=== PATIENT | male | born 1985 | race Caucasian/White ===

== ENCOUNTER 2017-05-25 09:28 | Inpatient (IN) | payer OTHER ==
--- NOTE | 2017-05-25 09:57 | HP ---
CIWA Score - CIWA Score Nausea/Vomitin-Mild Nausea/No Vomiting Muscle Tremors: 4-Moderate,w/Arms Extend Anxiety: 4-Mod. Anxious/Guarded Agitation: 2 Paroxysmal Sweats: 4-Forehead w/Sweat Beads Orientation: 0-Oriented Tacttile Disturbances: 1-Very Mild Itch/Numbness Auditory Disturbances: 0-None Visual Disturbances: 0-None Headache: 3-Moderate CIWA-Ar Total Score: 19 Admission ROS S - HPI Chief Complaint: Alcohol withdrawal symptoms Allergies/Adverse Reactions: Allergies Allergy/AdvReac Type Severity Reaction Status Date / Time No Known Allergies Allergy Verified 05/25/17 09:43 History of Present Illness: 31 years old male with5 years old history dependence is seeking admission to detox. Patient has been to previous detox at [facility] and reports insignificant period of sobriety. He reports medical history of depression, anxiety and he appears dehydrated with dry mucous membranes. He denies suicide attempt and suicidal ideation at this time. Exam Limitations: No Limitations - Ebola screening Have you traveled outside of the country in the last 21 days: No (N) Have you had contact with anyone from an Ebola affected area: No Have you been sick,other than usual withdrawal symptoms: No Do you have a fever: No - Review of Systems Constitutional: Chills, Loss of Appetite, Malaise, Night Sweats, Changes in sleep EENT: reports: No Symptoms Reported Respiratory: reports: No Symptoms reported Cardiac: reports: No Symptoms Reported GI: reports: Diarrhea, Poor Appetite, Poor Fluid Intake, Vomiting, Abdominal cramping : reports: No Symptoms Reported Musculoskeletal: reports: Muscle Pain Integumentary: reports: Dryness, Flushing Neuro: reports: Tingling, Tremors Endocrine: reports: Flushing Hematology: reports: No Symptoms Reported Psychiatric: reports: Orientated x3, Agitated, Anxious, Depressed Other Systems: Reviewed and Negative Patient History - Patient Medical History Hx Anemia: No Hx Asthma: No Hx Chronic Obstructive Pulmonary Disease (COPD): No Hx Cancer: No Hx Cardiac Disorders: No Hx Congestive Heart Failure: No Hx Hypertension: No Hx Hypercholesterolemia: No HX Cerebrovascular Accident: No Hx Seizures: No Hx Diabetes: No Hx Gastrointestinal Disorders: No Hx Liver Disease: No Hx Genitourinary Disorders: No Hx Sexually Transmitted Disorders: No Hx Renal Disease (ESRD): No Hx Thyroid Disease: No Hx Human Immunodeficiency Virus (HIV): No (Negative) Hx Hepatitis C: No Hx Depression: Yes (not on medic ation) Hx Suicide Attempt: No (Denies suicidal ideation at this time) Hx Bipolar Disorder: No Hx Schizophrenia: No Other Medical History: Anxiety - not on medication - Patient Surgical History Past Surgical History: No - PPD History Previous Implant?: No Implanted On Prior R Admission?: No PPD to be Administered?: Yes - Reproductive History Patient is a Female of Child Bearing Age (11 -55 yrs old): No (MALE) - Smoking Cessation Smoking history: Current every day smoker Have you smoked in the past 12 months: Yes Aproximately how many cigarettes per day: 2 Hx Chewing Tobacco Use: No Initiated information on smoking cessation: Yes 'Breaking Loose' booklet given: 05/25/17 - Substance & Tx. History Hx Alcohol Use: Yes Hx Substance Use: No Substance Use Type: Alcohol Hx Substance Use Treatment: Yes ([facility]) - Substances Abused Alcohol Route: Oral Frequency: Daily Amount used: 1-2 PINT VODKA Age of first use: 26 Date of Last Use: 05/24/17 Family Disease History - Family Disease History Family History: Denies Admission Physical Exam BHS - Vital Signs Vital Signs: Vital Signs - 24 hr 05/25/17 09:31 Temperature 96.3 F L Pulse Rate 104 H Respiratory 22 Rate Blood Pressure 150/98 - Physical General Appearance: Yes: Appropriately Dressed, Moderate Distress HEENTM: Yes: EOMI, Normal ENT Inspection, Normal Voice, HAVEN Respiratory: Yes: Lungs Clear, Normal Breath Sounds, No Respiratory Distress Neck: Yes: Supple Breast: Yes: Breast Exam Deferred Cardiology: Yes: Tachycardia Abdominal: Yes: Normal Bowel Sounds, Soft Genitourinary: Yes: Dribblimg Back: Yes: Normal Inspection Musculoskeletal: Yes: Muscle Pain Neurological: Yes: Alert, Normal Mood/Affect Integumentary: Yes: Dry, Pale Lymphatic: Yes: Within Normal Limits - Diagnostic (1) Alcohol dependence with uncomplicated withdrawal Current Visit: Yes Status: Chronic (2) Nicotine dependence Current Visit: Yes Status: Chronic (3) Anxiety Current Visit: Yes Status: Chronic (4) Depression (emotion) Current Visit: Yes Status: Chronic Qualifiers: Depression Type: unspecified Qualified Code(s): F32.9 - Major depressive disorder, single episode, unspecified (5) Dehydration Current Visit: Yes Status: Acute Cleared for Admission [facility] - Detox or Rehab [facility] Level of Care: Medically Managed Detox Regimen/Protocol: Librium [facility] Breath Alcohol Content Breath Alcohol Content: 0.160 Urine Drug Screen - Results Drug Screen Negative: No Urine Drug Screen Results: BZO-Benzodiazepines
[2017-05-25] MEDS ORDERED: guaiFENesin/D-METHORPHAN HB 10 ML UNIT-DOSE CUPS PO PRN (10:00)
[2017-05-25] MEDS ORDERED: MAGNESIUM HYDROX 2400MG/30ML ORAL SUSPENSION 30 ML CUP PO PRN (10:00)
[2017-05-25] MEDS ORDERED: MAG HYDROX/AL HYDROX/SIMETH 30 ML UNIT-DOSE CUP PO PRN (10:00)
[2017-05-25] MEDS ORDERED: MENTHOL/PHENOL 1 EACH UD MM PRN (10:00)
[2017-05-25] MEDS ORDERED: LOPERAMIDE HCL 2 MG CAPSULE PO PRN (10:00)
[2017-05-25] MEDS ORDERED: IBUPROFEN 400 MG TABLET (FP) PO PRN (10:00)
[2017-05-25] MEDS ORDERED: P-EPHED 60MG/TRIPROLIDI 2.5MG TABLET PO PRN (10:00)
[2017-05-25] MEDS ORDERED: chlordiazePOXIDE HCL 25 MG CAPSULE PO ONE (10:00)
[2017-05-25] MEDS ORDERED: ACETAMINOPHEN 325 MG TABLET (FP) PO PRN (10:00)
[2017-05-25] MEDS ORDERED: MAGNESIUM CITRATE 300 ML BOTTLE PO PRN (10:00)
[2017-05-25] MEDS ORDERED: NICOTINE POLACRILEX 2 MG GUM BUC PRN (10:00)
[2017-05-25 10:33] VITALS: BMI 21.8
[2017-05-25] MEDS: NICOTINE 14 MG/24 HOURS TOPICAL PATCH TD SCH (12:57)
[2017-05-25] MEDS: chlordiazePOXIDE HCL 25 MG CAPSULE PO SCH ×3 (12:57→22:26)
[2017-05-25] MEDS: PRENATAL VITAMINS W/ FOLIC ACID TABLET (FP) PO SCH (12:58)
[2017-05-25] MEDS ORDERED: cloNIDine HCL 0.1 MG TABLET PO ONE (13:00)
--- NOTE | 2017-05-25 14:45 | EKG ---
Test Reason : Blood Pressure : / mmHG Vent. Rate : 105 BPM Atrial Rate : 105 BPM P-R Int : 138 ms QRS Dur : 102 ms QT Int : 350 ms P-R-T Axes : 064 007 050 degrees QTc Int : 462 ms SINUS TACHYCARDIA OTHERWISE NORMAL ECG NO PREVIOUS ECGS AVAILABLE Confirmed by DEVENDRA HERNANDEZ MD ([id number]) on 05/25/2017 2:45:35 PM Referred By: Confirmed By:DEVENDRA HERNANDEZ MD
[2017-05-25] MEDS: chlordiazePOXIDE HCL 25 MG CAPSULE PO PRN ×2 (14:57→19:31)
[2017-05-25 15:11] LABS: URINE APPEARANCE CLOUDY; URINE BILIRUBIN NEGATIVE (<2.0 mg/dL); URINE BLOOD NEGATIVE (NEGATIVE); URINE COLOR DKYELLOW; URINE GLUCOSE (UA) NEGATIVE (NEGATIVE); URINE KETONE 1+ (NEGATIVE); URINE LEUK ESTERASE NEGATIVE (NEGATIVE); URINE NITRITE NEGATIVE (NEGATIVE); URINE PROTEIN NEGATIVE (NEGATIVE); URINE UROBILINOGEN NEGATIVE mg/dL (0.2-1.0)
[2017-05-25] MEDS: hydrOXYzine HCL 25 MG TABLET (FP) PO PRN ×2 (16:35→21:18)
[2017-05-25] MEDS: ONDANSETRON *ODT* 4 MG TABLET SL PRN (21:25)
[2017-05-25] MEDS: MELATONIN 5 MG TABLETS PO PRN (22:26)
[2017-05-25] MEDS: THIAMINE HCL 100 MG TABLET (FP) PO SCH (22:26)
[2017-05-26] MEDS: chlordiazePOXIDE HCL 25 MG CAPSULE PO PRN ×4 (01:59→21:30)
[2017-05-26] MEDS: chlordiazePOXIDE HCL 25 MG CAPSULE PO SCH ×5 (05:25→22:54)
[2017-05-26] MEDS: hydrOXYzine HCL 25 MG TABLET (FP) PO PRN (07:57)
[2017-05-26] MEDS: PRENATAL VITAMINS W/ FOLIC ACID TABLET (FP) PO SCH (10:09)
[2017-05-26] MEDS: NICOTINE 14 MG/24 HOURS TOPICAL PATCH TD SCH (10:09)
--- NOTE | 2017-05-26 10:57 | PN ---
[facility] CIWA - CIWA Score Nausea/Vomitin-No Nausea/No Vomiting Muscle Tremors: 4-Moderate,w/Arms Extend Anxiety: 4-Mod. Anxious/Guarded Agitation: 4-Moderately Restless Paroxysmal Sweats: 1-Minimal Palms Moist Orientation: 0-Oriented Tacttile Disturbances: 3-Moderate Itch/Numb/Burn Auditory Disturbances: 0-None Visual Disturbances: 0-None Headache: 0-None Present CIWA-Ar Total Score: 16 BHS Progress Note (SOAP) Subjective: ANXIETY,SWEATS,FATIGUE. Objective: 05/26/17 10:56 Vital Signs Temperature 96.6 F L 05/26/17 09:13 Pulse Rate 72 05/26/17 10:30 Respiratory Rate 20 05/26/17 10:30 Blood Pressure 118/70 05/26/17 09:13 O2 Sat by Pulse Oximetry (%) Laboratory Last Values Urine Color Dkyellow 05/25/17 11:34 Urine Appearance Cloudy 05/25/17 11:34 Urine pH 6.0 (5.0-8.0) 05/25/17 11:34 Ur Specific [place] 1.018 (1.001-1.035) 05/25/17 11:34 Urine Protein Negative (NEGATIVE) 05/25/17 11:34 Urine Glucose (UA) Negative (NEGATIVE) 05/25/17 11:34 Urine Ketones 1+ (NEGATIVE) H 05/25/17 11:34 Urine Blood Negative (NEGATIVE) 05/25/17 11:34 Urine Nitrite Negative (NEGATIVE) 05/25/17 11:34 Urine Bilirubin Negative (<2.0 mg/dL) 05/25/17 11:34 Urine Urobilinogen Negative mg/dL (0.2-1.0) 05/25/17 11:34 Ur Leukocyte Esterase Negative (NEGATIVE) 05/25/17 11:34 Assessment: 05/26/17 10:57 WITHDRAWAL SX Plan: CONTINUE DETOX
[2017-05-26 12:36] LABS: ALBUMIN 3.7 g/dl (3.4-5.0); ANION GAP 10 (8-16); BLOOD UREA NITROGEN 10 mg/dL (7-18); CALCIUM 9.5 mg/dL (8.5-10.1); CHLORIDE 97 mmol/L (98-107); CO2 34 mmol/L (21-32); GLUCOSE,RANDOM 92 mg/dL (74-106); POTASSIUM 4.2 mmol/L (3.5-5.1); SODIUM 141 mmol/L (136-145)
[2017-05-26 12:42] LABS: ALK PHOS 58 U/L (45-117); BILIRUBIN,TOTAL 1.9 mg/dL (0.2-1.0); CREATININE 0.8 mg/dL (0.7-1.3); SGOT/AST 84 U/L (15-37); SGPT/ALT 85 U/L (12-78); TOT PROT 6.9 g/dl (6.4-8.2)
--- NOTE | 2017-05-26 13:48 | CONSULT ---
[facility] Psychiatric Consult - Data Date of interview: 05/26/17 Admission source: [facility] Identifying data: First admission to [facility] for this 31 y/o male seeking detox treatment on for alcohol dependence.Patient is single without children,domiciled and currrently employed. Substance Abuse History: Discussed in this interview.Alcohol abuse is confirmed by patient.Details in current [facility] report : Smoking history: Current every day smoker. Have you smoked in the past 12 months: Yes. Aproximately how many cigarettes per day: 2. Hx Chewing Tobacco Use: No. Initiated information on smoking cessation: Yes. 'Breaking Loose' booklet given: 05/25/17. - Substance & Tx. History. Hx Alcohol Use: Yes. Hx Substance Use: No. Substance Use Type : Alcohol. Hx Substance Use Treatment: Yes ([facility]). - Substances Abused. Alcohol. Route: Oral. Frequency: Daily. Amount used: 1 -2 PINT VODKA. Age of first use: 26. Date of Last Use: 05/24/17 Medical History: Patient denies medical problems.Endorses good physical health. Psychiatric History: No reported history of psychiatric hospitalizations.Mr Lincoln admits,however,to past OPD care at the [facility] in [facility].Saw a therapist there to address issues of anxiety + mild depression ( difficulties with girlfriend at the time).Patient reports that he dropped out of treatment months ago.Used to be prescribed gabapentin.No history of suicide attempts (as per self-report). Physical/Sexual Abuse/Trauma History: Patient denies.Stressors have considerably lessened in severity since girlfriend has returned to health ( intestinal cancer in remission,according to patient). Additional Comment: Urine Drug Screen Results: BZO-Benzodiazepines.Noted. Mental Status Exam - Mental Status Exam Alert and Oriented to: Time, Place, Person Cognitive Function: Good Patient Appearance: Well Groomed Mood: Withdrawn, Hopeful, Euthymic Affect: Appropriate, Normal Range Patient Behavior: Fatigued, Appropriate, Cooperative Speech Pattern: Clear Voice Loudness: Normal Thought Process: Intact, Goal Oriented Thought Disorder: Not Present Hallucinations: Denies Suicidal Ideation: Denies Homicidal Ideation: Denies Insight/Judgement: Fair Sleep: Well Appetite: Good Muscle strength/Tone: Normal Gait/Station: Normal Psychiatric Findings - Problem List ([place] 1, 2,3) (1) Alcohol dependence with uncomplicated withdrawal Current Visit: Yes Status: Acute (2) Nicotine dependence Current Visit: Yes Status: Acute Qualifiers: Nicotine product type: cigarettes Substance use status: in withdrawal Qualified Code(s): F17.213 - Nicotine dependence, cigarettes, with withdrawal - Initial Treatment Plan Initial Treatment Plan: Psychoeducation.Detoxification in progress.Observation.
[2017-05-26 14:28] LABS: HEMATOCRIT 41.6 % (35.4-49); HEMOGLOBIN 13.7 GM/dL (11.7-16.9); MCH 28.7 pg (25.7-33.7); MCHC 32.8 g/dl (32.0-35.9); MEAN CELL VOLUME 87.4 fl (80-96); MEAN PLT VOLUME 7.9 fl (7.5-11.1); PLATELET COUNT 259 K/MM3 (134-434); RBC 4.76 M/mm3 (4.00-5.60); RDW 16.2 % (11.9-15.9)
[2017-05-26] MEDS: ONDANSETRON *ODT* 4 MG TABLET SL PRN (18:00)
[2017-05-26] MEDS: THIAMINE HCL 100 MG TABLET (FP) PO SCH (22:53)
[2017-05-26] MEDS: MELATONIN 5 MG TABLETS PO PRN (22:54)
--- NOTE | 2017-05-26 23:56 | EKG ---
Test Reason : Blood Pressure : / mmHG Vent. Rate : 068 BPM Atrial Rate : 068 BPM P-R Int : 164 ms QRS Dur : 110 ms QT Int : 422 ms P-R-T Axes : 041 029 034 degrees QTc Int : 448 ms NORMAL SINUS RHYTHM NORMAL ECG WHEN COMPARED WITH ECG OF 25-MAY-2017 10:59, VENT. RATE HAS DECREASED BY 37 BPM Confirmed by ANDREA JETT MD ([id number]) on 05/26/2017 11:56:15 PM Referred By: Confirmed By:ANDREA JETT MD
[2017-05-27] MEDS: chlordiazePOXIDE HCL 25 MG CAPSULE PO PRN ×4 (02:15→20:00)
[2017-05-27] MEDS: chlordiazePOXIDE HCL 25 MG CAPSULE PO SCH (05:28)
[2017-05-27] MEDS: chlordiazePOXIDE 5 MG CAPSULE PO SCH ×3 (10:15→22:26)
[2017-05-27] MEDS: PRENATAL VITAMINS W/ FOLIC ACID TABLET (FP) PO SCH (10:16)
[2017-05-27] MEDS: NICOTINE 14 MG/24 HOURS TOPICAL PATCH TD SCH (10:16)
--- NOTE | 2017-05-27 11:15 | PN ---
[facility] CIWA - CIWA Score Nausea/Vomitin-No Nausea/No Vomiting Muscle Tremors: 4-Moderate,w/Arms Extend Anxiety: 4-Mod. Anxious/Guarded Agitation: 4-Moderately Restless Paroxysmal Sweats: 1-Minimal Palms Moist Orientation: 0-Oriented Tacttile Disturbances: 3-Moderate Itch/Numb/Burn Auditory Disturbances: 0-None Visual Disturbances: 0-None Headache: 0-None Present CIWA-Ar Total Score: 16 S Progress Note (SOAP) Subjective: ANXIETY,SWEATS,RESTLESSNESS. REPORTS HE TAKES GABAPENTIN AT HOME. Objective: 05/27/17 11:14 Vital Signs Temperature 96.6 F L 05/27/17 09:44 Pulse Rate 62 05/27/17 09:44 Respiratory Rate 20 05/27/17 09:44 Blood Pressure 112/70 05/27/17 09:44 O2 Sat by Pulse Oximetry (%) Laboratory Last Values WBC 5.0 K/mm3 (4.0-10.0) 05/26/17 07:00 RBC 4.76 M/mm3 (4.00-5.60) 05/26/17 07:00 Hgb 13.7 GM/dL (11.7-16.9) 05/26/17 07:00 Hct 41.6 % (35.4-49) 05/26/17 07:00 MCV 87.4 fl (80-96) 05/26/17 07:00 MCH 28.7 pg (25.7-33.7) 05/26/17 07:00 MCHC 32.8 g/dl (32.0-35.9) 05/26/17 07:00 RDW 16.2 % (11.9-15.9) H 05/26/17 07:00 Plt Count 259 K/MM3 (134-434) 05/26/17 07:00 MPV 7.9 fl (7.5-11.1) 05/26/17 07:00 Sodium 141 mmol/L (136-145) 05/26/17 07:00 Potassium 4.2 mmol/L (3.5-5.1) 05/26/17 07:00 Chloride 97 mmol/L (98-107) L 05/26/17 07:00 Carbon Dioxide 34 mmol/L (21-32) H 05/26/17 07:00 Anion Gap 10 (8-16) 05/26/17 07:00 BUN 10 mg/dL (7-18) 05/26/17 07:00 Creatinine 0.8 mg/dL (0.7-1.3) 05/26/17 07:00 Creat Clearance w eGFR > 60 (>60) 05/26/17 07:00 Random Glucose 92 mg/dL (74-106) 05/26/17 07:00 Calcium 9.5 mg/dL (8.5-10.1) 05/26/17 07:00 Total Bilirubin 1.9 mg/dL (0.2-1.0) H 05/26/17 07:00 AST 84 U/L (15-37) H 05/26/17 07:00 ALT 85 U/L (12-78) H 05/26/17 07:00 Alkaline Phosphatase 58 U/L (45-117) 05/26/17 07:00 Total Protein 6.9 g/dl (6.4-8.2) 05/26/17 07:00 Albumin 3.7 g/dl (3.4-5.0) 05/26/17 07:00 Urine Color Dkyellow 05/25/17 11:34 Urine Appearance Cloudy 05/25/17 11:34 Urine pH 6.0 (5.0-8.0) 05/25/17 11:34 Ur Specific [place] 1.018 (1.001-1.035) 05/25/17 11:34 Urine Protein Negative (NEGATIVE) 05/25/17 11:34 Urine Glucose (UA) Negative (NEGATIVE) 05/25/17 11:34 Urine Ketones 1+ (NEGATIVE) H 05/25/17 11:34 Urine Blood Negative (NEGATIVE) 05/25/17 11:34 Urine Nitrite Negative (NEGATIVE) 05/25/17 11:34 Urine Bilirubin Negative (<2.0 mg/dL) 05/25/17 11:34 Urine Urobilinogen Negative mg/dL (0.2-1.0) 05/25/17 11:34 Ur Leukocyte Esterase Negative (NEGATIVE) 05/25/17 11:34 Assessment: 05/27/17 11:14 WITHDRAWAL SX Plan: CONTINUE DETOX F/U WITH PSYCH TODAY
--- NOTE | 2017-05-27 15:58 | PN ---
Psychiatric Progress Note Vital Signs: Vital Signs Period Temp Pulse Resp BP Sys/Soliman Pulse Ox Last 24 Hr 96.6 F-98.5 F 62-96 18-20 103-156/66-92 Date of Session: 05/27/17 Chief Complaint:: " I did not get my gabapentin." HPI: Day 3 of detoxification treatment.Benign hospital course.psychiatric follow up is sought in response to this patient's request for gabapentin. ROS: Unremarkable. Current Medications: Active Medications Generic Name Dose Route Start Last Admin Trade Name Freq PRN Reason Stop Dose Admin Acetaminophen 650 mg 05/25/17 10:00 Tylenol - PO Q4H PRN FEVER Al Hydroxide/Mg Hydroxide 30 ml 05/25/17 10:00 Mylanta Oral Suspension - PO Q6H PRN DYSPEPSIA Chlordiazepoxide HCl 15 mg 05/27/17 11:00 05/27/17 10:15 Librium - PO 05/28/17 05:01 15 mg [id number] NOEL Administration Chlordiazepoxide HCl 25 mg 05/25/17 10:00 05/27/17 13:12 Librium - PO 05/28/17 09:59 25 mg Q4H PRN Administration WITHDRAWAL(CONT SUBST) Chlordiazepoxide HCl 10 mg 05/28/17 11:00 Librium - PO 05/29/17 05:01 [id number] NOEL Eucalyptus/Menthol/Phenol/Sorbitol 1 each 05/25/17 10:00 Cepastat Lozenge - MM Q4H PRN SORE THROAT Gabapentin 300 mg 05/27/17 22:00 Neurontin - PO TID NOEL Guaifenesin 10 ml 05/25/17 10:00 Robitussin Dm - PO Q6H PRN COUGH Hydroxyzine HCl 25 mg 05/25/17 15:35 05/26/17 07:57 Atarax - PO 25 mg Q4H PRN Administration FOR ITCHING Ibuprofen 400 mg 05/25/17 10:00 Motrin - PO Q6H PRN PAIN LEVEL 4-6 Loperamide HCl 4 mg 05/25/17 10:00 Imodium - PO Q6H PRN DIARRHEA Magnesium Citrate 300 ml 05/25/17 10:00 Citroma - PO Q48H PRN CONSTIPATION Magnesium Hydroxide 30 ml 05/25/17 10:00 Milk Of Magnesia - PO DAILY PRN CONSTIPATION Melatonin 5 mg 05/25/17 22:00 05/26/17 22:54 Melatonin PO 5 mg HS PRN Administration INSOMNIA Nicotine 14 mg 05/25/17 10:00 05/27/17 10:16 Nicoderm Patch - TD Not Given DAILY NOEL Nicotine Polacrilex 2 mg 05/25/17 10:00 Nicorette Gum - BUC Q2H PRN NICOTINE REPLACEMENT RX Ondansetron HCl 4 mg 05/25/17 15:31 05/26/17 18:00 Zofran Odt - SL 4 mg Q8H PRN Administration NAUSEA AND/OR VOMITING Multivit/Folic Acid/Iron 1 tab 05/25/17 10:00 05/27/17 10:16 Vitamins (Sjr) - PO 1 tab DAILY NOEL Administration Pseudoephedrine/Triprolidine 1 combo 05/25/17 10:00 Actifed - PO TID PRN NASAL CONGESTION Thiamine HCl 100 mg 05/25/17 22:00 05/26/17 22:53 Vitamin B1 - PO 100 mg HS NOEL Administration Medication(s) Change(s): Gabapentin 300 mg po tid is added to the regimen at patient's request.Side effects/benefits discussed with the patient. Current Side Effect: No Lab tests ordered: No Lab tests reviewed: Yes Provider note:: Case discussed in the morning with medical CLINICAL TRAINER Talib.Met with patient.He reports feeling much better.Expresses the wish to resume gabapentin.Restarted at the dose of 300 mg po tid (reduced).No specific complaints.No justification for additional psychiatric intervention. Total face to face time:: 25 Mental Status Exam - Mental Status Exam Alert and Oriented to: Time, Place, Person Cognitive Function: Good Patient Appearance: Well Groomed Mood: Anxious, Hopeful Affect: Appropriate, Normal Range Patient Behavior: Appropriate, Cooperative Speech Pattern: Clear, Appropriate Voice Loudness: Normal Thought Process: Goal Oriented Thought Disorder: Not Present Hallucinations: Denies Suicidal Ideation: Denies Homicidal Ideation: Denies Insight/Judgement: Fair Sleep: Well Appetite: Good Muscle strength/Tone: Normal Gait/Station: Normal Psychiatric Treatment Plan - Problem List (1) Alcohol dependence with uncomplicated withdrawal Current Visit: Yes (2) Nicotine dependence Current Visit: Yes Qualifiers: Nicotine product type: cigarettes Substance use status: in withdrawal Qualified Code(s): F17.213 - Nicotine dependence, cigarettes, with withdrawal (3) Anxiety disorder, unspecified Current Visit: Yes
[2017-05-27] MEDS: THIAMINE HCL 100 MG TABLET (FP) PO SCH (22:26)
[2017-05-27] MEDS: MELATONIN 5 MG TABLETS PO PRN (22:26)
[2017-05-27] MEDS: GABAPENTIN 300 MG CAPSULE (FP) PO SCH (22:26)
[2017-05-28] MEDS: chlordiazePOXIDE HCL 25 MG CAPSULE PO PRN (03:18)
[2017-05-28] MEDS: chlordiazePOXIDE 5 MG CAPSULE PO SCH (05:37)
[2017-05-28] MEDS: GABAPENTIN 300 MG CAPSULE (FP) PO SCH ×3 (05:37→22:36)
[2017-05-28] MEDS: NICOTINE 14 MG/24 HOURS TOPICAL PATCH TD SCH (10:21)
[2017-05-28] MEDS: chlordiazePOXIDE HCL 10 MG CAPSULE PO SCH ×3 (10:21→22:36)
[2017-05-28] MEDS: PRENATAL VITAMINS W/ FOLIC ACID TABLET (FP) PO SCH (10:21)
--- NOTE | 2017-05-28 10:54 | PN ---
BHS Progress Note (SOAP) Subjective: ANXIETY,LESS FATIGUE. PT IS OOB AMBULATING AROUND UNIT WITH STEADY GAIT. Objective: 05/28/17 10:54 Vital Signs Temperature 97.3 F L 05/28/17 09:18 Pulse Rate 72 05/28/17 09:18 Respiratory Rate 18 05/28/17 09:18 Blood Pressure 123/82 05/28/17 09:18 O2 Sat by Pulse Oximetry (%) Laboratory Last Values WBC 5.0 K/mm3 (4.0-10.0) 05/26/17 07:00 RBC 4.76 M/mm3 (4.00-5.60) 05/26/17 07:00 Hgb 13.7 GM/dL (11.7-16.9) 05/26/17 07:00 Hct 41.6 % (35.4-49) 05/26/17 07:00 MCV 87.4 fl (80-96) 05/26/17 07:00 MCH 28.7 pg (25.7-33.7) 05/26/17 07:00 MCHC 32.8 g/dl (32.0-35.9) 05/26/17 07:00 RDW 16.2 % (11.9-15.9) H 05/26/17 07:00 Plt Count 259 K/MM3 (134-434) 05/26/17 07:00 MPV 7.9 fl (7.5-11.1) 05/26/17 07:00 Sodium 141 mmol/L (136-145) 05/26/17 07:00 Potassium 4.2 mmol/L (3.5-5.1) 05/26/17 07:00 Chloride 97 mmol/L (98-107) L 05/26/17 07:00 Carbon Dioxide 34 mmol/L (21-32) H 05/26/17 07:00 Anion Gap 10 (8-16) 05/26/17 07:00 BUN 10 mg/dL (7-18) 05/26/17 07:00 Creatinine 0.8 mg/dL (0.7-1.3) 05/26/17 07:00 Creat Clearance w eGFR > 60 (>60) 05/26/17 07:00 Random Glucose 92 mg/dL (74-106) 05/26/17 07:00 Calcium 9.5 mg/dL (8.5-10.1) 05/26/17 07:00 Total Bilirubin 1.9 mg/dL (0.2-1.0) H 05/26/17 07:00 AST 84 U/L (15-37) H 05/26/17 07:00 ALT 85 U/L (12-78) H 05/26/17 07:00 Alkaline Phosphatase 58 U/L (45-117) 05/26/17 07:00 Total Protein 6.9 g/dl (6.4-8.2) 05/26/17 07:00 Albumin 3.7 g/dl (3.4-5.0) 05/26/17 07:00 Urine Color Dkyellow 05/25/17 11:34 Urine Appearance Cloudy 05/25/17 11:34 Urine pH 6.0 (5.0-8.0) 05/25/17 11:34 Ur Specific [place] 1.018 (1.001-1.035) 05/25/17 11:34 Urine Protein Negative (NEGATIVE) 05/25/17 11:34 Urine Glucose (UA) Negative (NEGATIVE) 05/25/17 11:34 Urine Ketones 1+ (NEGATIVE) H 05/25/17 11:34 Urine Blood Negative (NEGATIVE) 05/25/17 11:34 Urine Nitrite Negative (NEGATIVE) 05/25/17 11:34 Urine Bilirubin Negative (<2.0 mg/dL) 05/25/17 11:34 Urine Urobilinogen Negative mg/dL (0.2-1.0) 05/25/17 11:34 Ur Leukocyte Esterase Negative (NEGATIVE) 05/25/17 11:34 RPR Titer Nonreactive (NONREACTIVE) 05/26/17 07:00 Assessment: 05/28/17 10:54 WITHDRAWAL SX Plan: CONTINUE DETOX
[2017-05-28] MEDS: hydrOXYzine PAMOATE 25 MG CAPSULE (FP) PO PRN ×2 (15:01→20:05)
[2017-05-28] MEDS: THIAMINE HCL 100 MG TABLET (FP) PO SCH (22:36)
[2017-05-28] MEDS: MELATONIN 5 MG TABLETS PO PRN (23:35)
[2017-05-29] MEDS: GABAPENTIN 300 MG CAPSULE (FP) PO SCH (05:28)
[2017-05-29] MEDS: chlordiazePOXIDE HCL 10 MG CAPSULE PO SCH (05:28)
[2017-05-29 09:10] VITALS: BP 132/92; PULSE 90; TEMP 97.1
[2017-05-29] MEDS: NICOTINE 14 MG/24 HOURS TOPICAL PATCH TD SCH (09:14)
[2017-05-29] MEDS: PRENATAL VITAMINS W/ FOLIC ACID TABLET (FP) PO SCH (09:14)
[2017-05-29] MEDS: hydrOXYzine PAMOATE 25 MG CAPSULE (FP) PO PRN (09:14)
--- NOTE | 2017-05-29 20:00 | PN ---
BHS Progress Note (SOAP) Subjective: Patient denies current Detox symptoms and reports that he is feeling well overall. Objective: PATIENT A & O X 3, OBSERVED AMBULATING ON UNIT. NO ACUTE DISTRESS. 05/29/17 19:58 Vital Signs Temperature 97.1 F L 05/29/17 09:09 Pulse Rate 90 05/29/17 09:09 Respiratory Rate 18 05/29/17 09:09 Blood Pressure 132/92 05/29/17 09:09 O2 Sat by Pulse Oximetry (%) Laboratory Tests 05/25/17 05/26/17 05/26/17 11:34 07:00 07:00 WBC 5.0 RBC 4.76 Hgb 13.7 Hct 41.6 MCV 87.4 MCH 28.7 MCHC 32.8 RDW 16.2 H Plt Count 259 MPV 7.9 Sodium 141 Potassium 4.2 Chloride 97 L Carbon Dioxide 34 H Anion Gap 10 BUN 10 Creatinine 0.8 Creat Clearance w eGFR > 60 Random Glucose 92 Calcium 9.5 Total Bilirubin 1.9 H AST 84 H ALT 85 H Alkaline Phosphatase 58 Total Protein 6.9 Albumin 3.7 Urine Color Dkyellow Urine Appearance Cloudy Urine pH 6.0 Ur Specific [place] 1.018 Urine Protein Negative Urine Glucose (UA) Negative Urine Ketones 1+ H Urine Blood Negative Urine Nitrite Negative Urine Bilirubin Negative Urine Urobilinogen Negative Ur Leukocyte Esterase Negative RPR Titer 05/26/17 07:00 WBC RBC Hgb Hct MCV MCH MCHC RDW Plt Count MPV Sodium Potassium Chloride Carbon Dioxide Anion Gap BUN Creatinine Creat Clearance w eGFR Random Glucose Calcium Total Bilirubin AST ALT Alkaline Phosphatase Total Protein Albumin Urine Color Urine Appearance Urine pH Ur Specific [place] Urine Protein Urine Glucose (UA) Urine Ketones Urine Blood Urine Nitrite Urine Bilirubin Urine Urobilinogen Ur Leukocyte Esterase RPR Titer Nonreactive labs noted. Assessment: 05/29/17 19:59 COMPLETION OF DETOX REGIMEN. Plan: PATIENT SCHEDULED FOR DISCHARGE FROM DETOX UNIT TODAY.
--- NOTE | 2017-05-29 20:06 | DS ---
[facility] Detox Discharge Summary Admission Date: 05/25/17 Discharge Date: 05/29/17 - History Present History: Alcohol Dependence Additional Comments: PATIENT GOING HOME, WILL LIKELY RETURN TO ' [facility] ([place] FOR AFTERCARE. PATIENT WAS DISCHARGED FROM DETOX UNIT IN STABLE MEDICAL CONDITION. Pertinent Past History: Depression, Anxiety, Nicotine Dependence, Dehydration. - Physical Exam Results Vital Signs: Vital Signs Temperature 97.1 F L 05/29/17 09:09 Pulse Rate 90 05/29/17 09:09 Respiratory Rate 05/29/17 09:09 Blood Pressure 132/92 05/29/17 09:09 O2 Sat by Pulse Oximetry (%) Pertinent Admission Physical Exam Findings: WITHDRAWAL SYMPTOMS. Laboratory Tests 05/25/17 05/26/17 05/26/17 11:34 07:00 07:00 WBC 5.0 RBC 4.76 Hgb 13.7 Hct 41.6 MCV 87.4 MCH 28.7 MCHC 32.8 RDW 16.2 H Plt Count 259 MPV 7.9 Sodium 141 Potassium 4.2 Chloride 97 L Carbon Dioxide 34 H Anion Gap 10 BUN 10 Creatinine 0.8 Creat Clearance w eGFR > 60 Random Glucose 92 Calcium 9.5 Total Bilirubin 1.9 H AST 84 H ALT 85 H Alkaline Phosphatase 58 Total Protein 6.9 Albumin 3.7 Urine Color Dkyellow Urine Appearance Cloudy Urine pH 6.0 Ur Specific [place] 1.018 Urine Protein Negative Urine Glucose (UA) Negative Urine Ketones 1+ H Urine Blood Negative Urine Nitrite Negative Urine Bilirubin Negative Urine Urobilinogen Negative Ur Leukocyte Esterase Negative RPR Titer 05/26/17 07:00 WBC RBC Hgb Hct MCV MCH MCHC RDW Plt Count MPV Sodium Potassium Chloride Carbon Dioxide Anion Gap BUN Creatinine Creat Clearance w eGFR Random Glucose Calcium Total Bilirubin AST ALT Alkaline Phosphatase Total Protein Albumin Urine Color Urine Appearance Urine pH Ur Specific [place] Urine Protein Urine Glucose (UA) Urine Ketones Urine Blood Urine Nitrite Urine Bilirubin Urine Urobilinogen Ur Leukocyte Esterase RPR Titer Nonreactive LABS NOTED. - Treatment Hospital Course: Detox Protocol Followed, Detoxed Safely, Responded well, Discharged Condition Good Patient has Accepted a Rehab Referral to: PT RETURNING TO '[facility] ([place], [place] - Medication Discharge Medications: Ambulatory Orders Gabapentin [Neurontin -] 600 mg PO TID 05/25/17 Gabapentin [Neurontin -] 300 mg PO TID #60 capsule 05/28/17 - Diagnosis (1) Alcohol dependence with uncomplicated withdrawal Status: Acute (2) Dehydration Status: Acute (3) Nicotine dependence Status: Acute Qualifiers: Nicotine product type: cigarettes Substance use status: in withdrawal Qualified Code(s): F17.213 - Nicotine dependence, cigarettes, with withdrawal (4) Anxiety Status: Chronic (5) Depression (emotion) Status: Chronic Qualifiers: Depression Type: unspecified Qualified Code(s): F32.9 - Major depressive disorder, single episode, unspecified - AMA Did Patient Leave Against Medical Advice: No
--- NOTE | 2017-05-30 12:26 | PN ---
S Progress Note Note: Psychiatric nurse practitioner note: -Note delayed - Received phone call from patient on 05/29/17 at approximately 17:40pm requesting gabapentin 300mg TID for thirty days. As per records, Dr. Dunham electronically sent patient a prescription for his medications on 05/28/17,. Patient informed policy writer that a prescription of gabapentin 300mg TID would only be given to him if the medication is called in to his pharmacy. [employer] Operator made contact with patient's pharmacy at [phone] [place] [address] and was able to speak to pharmacist DAGMAR. Pharmacist informed policy writer that patient picked up a prescription of gabapentin 300mg TID (90 pills) on 05/10/17 and therefore has enough medications until 06/10/17. As a result pharmacist will not be giving patient additional gabapentin medication. Reeling Machine Setup Operator in agreement with decision.
== END 2017-05-29 09:55 | disposition home or self-care (01) | DRG 775 ==
LOC: YASAS 09:28 → Y3N 09:55
PROVIDERS: ADMIT Internal Medicine; ATTEND Internal Medicine
PROC: HZ2ZZZZ Detoxification Services for Substance Abuse Treatment (ICD-10-PCS; principal; 2017-05-25)
DX: F10.230 Alcohol dependence with withdrawal, uncomplicated (principal); F17.210 Nicotine dependence, cigarettes, uncomplicated; F32.9 Major depressive disorder, single episode, unspecified; F41.9 Anxiety disorder, unspecified; E86.0 Dehydration
CPT/HCPCS: 36415; 80053; 81003; 85027; 86593; 93005; 93010; J0735; Q0162